=== PATIENT | male | born 1970 | race Caucasian/White ===

== ENCOUNTER → 2016-11-01 | Outpatient (CLI) | payer OTHER, BC ==
[~2016-11-01] MED LIST: /LINE60TA PO; BACIDCA PO; BENA25CA PO; BETA0.3I SC; CRES20TA PO; LISI5TAB PO; MULTCAP PO; NIAC500T42 PO; PANT20TA PO; PERCOCET PO; TYLE325T5 PO; VITA-112 PO; [UNRECOGNIZED DRUG - CODE] IV
--- NOTE | 2016-11-01 13:02 | REP ---
Left foot series: Four views. History: Pain in the left foot. Injury in a fall. Eversion injury. Findings: Four views of the left foot demonstrate overall normal bone mineral density. There is Achilles calcaneal spurring. No fracture is evident. Impression: No fracture or other acute bony abnormality. Achilles calcaneal spurring noted. Signed by Moustapha Huynh MD 11/01/2016 03:49 P
== END ==
LOC: M ADAMS 08:23
PROVIDERS: ATTEND Physician Assistant
DX: M79.672 Pain in left foot (principal); M77.32 Calcaneal spur, left foot

== ENCOUNTER → 2016-11-06 | Outpatient (CLI) | payer OTHER, BC ==
[2016-11-06 17:32] LABS: BASO % 0.6 % (0.0-1.0); EOS # 0.1 K/mm3 (0.0-0.50); EOS % 2.3 % (0.0-3.0); LARGE UNSTAINED CELL # 0.1 K/mm3 (0.0-0.4); LARGE UNSTAINED CELL % 3.1 % (0.0-4.0); LYMPH # 0.6 K/mm3 (1.5-4.5); LYMPH % 13.3 % (24.0-44.0); MEAN CORPUSCULAR HGB CONC 34.3 g/dl (32.0-36.5); MEAN CORPUSCULAR VOLUME 90.4 fl (80.0-96.0); MONO # 0.4 K/mm3 (0.0-0.8); MONO % 9.8 % (0.0-5.0); NEUTROPHILS # 2.5 K/mm3 (1.8-7.7); NEUTROPHILS % 70.9 % (36.0-66.0); PLATELET COUNT, AUTOMATED 243 k/mm3 (150-450); RED CELL DISTRIBUTION WIDTH 12.7 % (11.5-14.5); WHITE BLOOD COUNT 3.6 K/mm3 (4.0-10.0)
[2016-11-06 19:29] LABS: ALBUMIN 4.4 GM/DL (3.2-5.2); ALBUMIN/GLOBULIN RATIO 1.57 (1.00-1.93); ALKALINE PHOSPHATASE 89 U/L (45-117); ALT/SGPT 112 U/L (12-78); ANION GAP 9 MEQ/L (8-16); AST/SGOT 36 U/L (15-37); BILIRUBIN,TOTAL 0.5 MG/DL (0.2-1.0); BLOOD UREA NITROGEN 21 MG/DL (7-18); CALCIUM LEVEL 8.9 MG/DL (8.5-10.1); CARBON DIOXIDE LEVEL 25 MEQ/L (21-32); CHLORIDE LEVEL 107 MEQ/L (98-107); CREATININE FOR GFR 1.02 MG/DL (0.70-1.30); GLOMERULAR FILTRATION RATE > 60.0 (>60); GLUCOSE, FASTING 86 MG/DL (70-105); POTASSIUM SERUM 4.1 MEQ/L (3.5-5.1); SODIUM LEVEL 141 MEQ/L (136-145); TOTAL PROTEIN 7.2 GM/DL (6.4-8.2)
== END ==
LOC: M ADAMS 11:45
PROVIDERS: ATTEND Psychiatry & Neurology Neurology
DX: G35 Multiple sclerosis (principal); E55.9 Vitamin D deficiency, unspecified

== ENCOUNTER → 2018-06-12 | Outpatient (CLI) | payer OTHER, BC ==
--- NOTE | 2018-06-12 10:18 | REP ---
LIMITED ABDOMINAL ULTRASOUND: 06/12/2018. Clinical history: Elevated LFTs. Comparison 01/03/2014. Findings: Sonographic evaluation of the right upper quadrant shows the liver homogeneous but slightly hyperechoic in echotexture. This may reflect some mild diffuse fatty infiltration. There is no hepatomegaly, hepatic mass, cyst or intrahepatic biliary dilatation. No adjacent ascites. Gallbladder is adequately filled and shows no stone, sludge, wall thickening or pericholecystic fluid. Common duct is 3.2 mm without a common duct stone. Pancreas is limited view secondary gas shadowing. Right kidney is 12.4 x 5.7 x 5.7 cm. There is no stone or hydronephrosis evident. No generalized ascites is present. IMPRESSION: 1. Mild fatty infiltration of the liver without focal lesion, focal hepatic mass or intrahepatic biliary dilatation. 2. Common duct 3.2 mm unremarkable. 3. Gallbladder without calcified stone, mass, wall thickening or pericholecystic fluid. No sonographic Prieto sign. 4. Right kidney unremarkable. Electronically Signed by Dagoberto Peterson MD 06/12/2018 05:48 P
== END ==
LOC: M RAD 07:33
PROVIDERS: ATTEND Nurse Practitioner Adult Health
DX: R74.8 Abnormal levels of other serum enzymes (principal)

== ENCOUNTER → 2020-07-18 | Outpatient (REF) | payer OTHER, BC ==
[~2020-07-18] MED LIST changes: -/LINE60TA PO; +OXYC1TAB23 PO; -PERCOCET PO; +ZYVO100T PO
[2020-07-21 09:45] LABS: CHOLESTEROL RISK RATIO 4.037 (<5); LDL CHOLESTEROL 116.8 MG/DL (<100)
== END ==
LOC: M WUC 09:40
PROVIDERS: ATTEND Internal Medicine
DX: E78.00 Pure hypercholesterolemia, unspecified (principal)

== ENCOUNTER → 2020-07-18 | Outpatient (CLI) | payer OTHER, BC ==
[2020-07-18 09:54] LABS: BASO % 0.6 % (0.0-1.0); EOS % 1.1 % (0.0-3.0); HEMATOCRIT 44.2 % (42.0-52.0); HEMOGLOBIN 15.2 g/dl (13.5-17.5); LYMPH # 0.3 10^3/uL (1.5-5.0); LYMPH % 9.2 % (24.0-44.0); MEAN CORPUSCULAR HEMOGLOBIN 31.4 pg (27.0-33.0); MEAN CORPUSCULAR HGB CONC 34.4 g/dl (32.0-36.5); MEAN CORPUSCULAR VOLUME 91.3 fl (80.0-96.0); MONO # 0.5 10^3/uL (0.0-0.8); MONO % 12.9 % (2.0-8.0); NEUTROPHILS # 2.6 10^3/uL (1.5-8.5); NEUTROPHILS % 75.6 % (36.0-66.0); PLATELET COUNT, AUTOMATED 243 10^3/uL (150-450); RED BLOOD COUNT 4.84 10^6/uL (4.30-6.10); WHITE BLOOD COUNT 3.5 10^3/uL (4.0-10.0)
[2020-07-18 10:36] LABS: ALBUMIN 4.3 GM/DL (3.2-5.2); BILIRUBIN,DIRECT 0.2 MG/DL (0.0-0.2); BILIRUBIN,TOTAL 0.6 MG/DL (0.2-1.0); CHOLESTEROL RISK RATIO 4.037 (<5); TOTAL PROTEIN 7.4 GM/DL (6.4-8.2)
[2020-07-18 11:20] LABS: TOTAL 25(OH) VITAMIN D 33.4 NG/ML (30.0-100.0)
== END ==
LOC: M WUC 08:25
PROVIDERS: ATTEND Nurse Practitioner Family
DX: G35 Multiple sclerosis (principal); E55.9 Vitamin D deficiency, unspecified; E78.00 Pure hypercholesterolemia, unspecified

== ENCOUNTER → 2020-08-16 | Outpatient (CLI) | payer OTHER, BC | LOC: M LABSMTC 10:58 | PROVIDERS: ATTEND Internal Medicine Gastroenterology | DX: Z01.812 Encounter for preprocedural laboratory examination (principal); Z20.822 Contact with and (suspected) exposure to COVID-19 ==

== ENCOUNTER 2021-03-16 11:41 | Emergency (ER) | payer OTHER, BC ==
[~2021-03-16] VITALS: Ht 188 cm; Wt 103.1 kg
[2021-03-16 11:42] VITALS: BP 150/100
[2021-03-16] MEDS ORDERED: ESOM40CA35 (12:30)
[2021-03-16] MEDS ORDERED: GILE1CAP (12:30)
[2021-03-16] MEDS ORDERED: LISI20TA35 PO (12:30)
[2021-03-16] MEDS ORDERED: BOOSTRIX/ADACEL VACCINE (DIPHTH/PERTUSS/ACELL/TETANUS) 0.5ML SYR IM ONE (13:30)
== END 2021-03-16 13:55 | disposition home or self-care (01) ==
LOC: M ED 11:41
DX: S01.01XA Laceration without foreign body of scalp, initial encounter (principal); W22.8XXA Striking against or struck by other objects, initial encounter; Y92.89 Other specified places as the place of occurrence of the external cause; Y93.89 Activity, other specified; Y99.9 Unspecified external cause status; I10 Essential (primary) hypertension; E78.5 Hyperlipidemia, unspecified; K21.9 Gastro-esophageal reflux disease without esophagitis; G35 Multiple sclerosis; H46.9 Unspecified optic neuritis; Z79.899 Other long term (current) drug therapy; Z88.8 Allergy status to other drugs, medicaments and biological substances

== ENCOUNTER → 2023-05-05 | Outpatient (REF) | payer OTHER, BC ==
[~2023-05-05] MED LIST changes: +ESOM40CA35; +GILE1CAP; +LISI20TA35 PO
[2023-05-05 13:06] LABS: BASO % 0.6 % (0.0-1.0); EOS % 1.1 % (0.0-3.0); HEMATOCRIT 40.4 % (42.0-52.0); LYMPH # 0.4 10^3/uL (1.5-5.0); LYMPH % 9.9 % (24.0-44.0); MEAN CORPUSCULAR HEMOGLOBIN 30.7 pg (27.0-33.0); MEAN CORPUSCULAR HGB CONC 34.7 g/dl (32.0-36.5); MEAN CORPUSCULAR VOLUME 88.6 fl (80.0-96.0); MONO # 0.6 10^3/uL (0.0-0.8); MONO % 17.3 % (2.0-8.0); NEUTROPHILS # 2.5 10^3/uL (1.5-8.5); NEUTROPHILS % 70.8 % (36.0-66.0); PLATELET COUNT, AUTOMATED 278 10^3/uL (150-450); RED BLOOD COUNT 4.56 10^6/uL (4.30-6.10); WHITE BLOOD COUNT 3.5 10^3/uL (4.0-10.0)
[2023-05-05 13:33] LABS: ALBUMIN 4.5 G/DL (3.2-5.2); BILIRUBIN,DIRECT 0.2 MG/DL (<0.4); BILIRUBIN,TOTAL 0.6 MG/DL (0.3-1.2); TOTAL PROTEIN 7.1 G/DL (5.7-8.2)
[2023-05-05 13:35] LABS: TOTAL 25(OH) VITAMIN D 42.9 NG/ML (20.0-100.0)
== END ==
LOC: M LABWUC 12:22
PROVIDERS: ATTEND Nurse Practitioner Family
DX: E55.9 Vitamin D deficiency, unspecified (principal); G35 Multiple sclerosis